=== PATIENT | female | born 1980 | race Caucasian/White ===

== ENCOUNTER 2018-07-15 19:14 | Emergency (ER) | payer MEDICAID, OTHER ==
[~2018-07-15] VITALS: Ht 170.2 cm; Wt 85.5 kg
[~2018-07-15 19:14] MED LIST: LEVO75TA7 PO
[2018-07-15 19:30] VITALS: BP 165/79
[2018-07-15 20:44] LABS: MONOTEST NEGATIVE (Neg)
[2018-07-15] MEDS ORDERED: IBUP-1984 PO (20:50)
== END 2018-07-15 21:00 | disposition home or self-care (01) ==
LOC: ER 19:23
DX: J02.9 Acute pharyngitis, unspecified (principal); R50.9 Fever, unspecified; R42 Dizziness and giddiness; R05 Cough; Z90.49 Acquired absence of other specified parts of digestive tract; Z88.8 Allergy status to other drugs, medicaments and biological substances; Z79.899 Other long term (current) drug therapy
CPT/HCPCS: 36415; 86308; 87081; 87880; 99284